=== PATIENT | male | born 2005 | race African-American/Black ===

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

== ENCOUNTER 2025-03-30 08:37 | Emergency (ER) | payer BC, SELFPAY ==
[2025-03-30 08:45] VITALS: BP 120/74; PULSE 68; RESP 18; TEMP 36.3; O2SAT 99
--- NOTE | 2025-03-30 09:01 | ED.GENADULT ---
HPI - General Adult General Chief complaint: Skin/Abscess/Foreign Body Stated complaint: INSECT BITE TO FACE Source: patient Mode of arrival: ambulatory Limitations: no limitations History of Present Illness HPI narrative: Pt presents for evaluation of right sided facial lesion. He states two weeks ago he was bit by an insect. He noted swelling and redness in the affected area. The redness has subsided. He denies any fever, chills, itching, pain or drainage from the area. Related Data Allergies Allergy/AdvReac Type Severity Reaction Status Date / Time No Known Allergies Allergy Verified 03/30/25 08:42 Review of Systems Review of Systems: CONSTITUTIONAL: Denies fever, chills, or sweats. EYES: Denies visual changes, redness, or discharge. ENT: Denies rhinorrhea, congestion, sore throat, or otalgia. CARDIOVASCULAR: Denies chest pain, palpitations, or edema. RESPIRATORY: Denies cough or dyspnea. GASTROINTESTINAL: Denies abdominal pain, nausea, vomiting, or diarrhea. GENITOURINARY: Denies dysuria or hematuria. SKIN: Reports skin lesion to the right side of the face MUSCULOSKELETAL: Denies back pain, joint pain, or myalgia. NEUROLOGIC: Denies headache, numbness, dizziness, or weakness. PSYCHIATRIC: Denies anxiety or depression. [facility] Past Medical History Medical History No pertinent past medical history Surgical History Surgical History No pertinent past surgical history Family History Family History Mother Family history non-contributory Social History Social History Smoking status: Never smoker Substance use: current Substance use type: marijuana Gender identity (if verbalized by the patient): Male Spiritual care concerns: No Exam Narrative: GENERAL: Well-appearing, well-nourished, and in no acute distress. HEAD: Normocephalic, atraumatic. EYES: PERRLA and EOMI. ENT: Nares clear, no rhinorrhea or epistaxis. Mucous membranes moist. Oropharynx without tonsillar hypertrophy exudate or other lesions. Bilateral TMs pearly [place]rid nonbulging NECK: Supple. No adenopathy or masses. No carotid bruits or JVD CHEST: Clear to auscultation. No respiratory distress. No wheezes rales or rhonchi HEART: Regular rate and rhythm. No murmur heard. Normal peripheral pulses. ABDOMEN: Soft, nontender, nondistended, normal active bowel sounds. EXTREMITIES: Normal range of motion. No edema. SKIN: There is a 2cm mass noted to the right mandibular angle without considerable redness or warmth NEURO: No focal deficits. Alert and oriented x3. PSYCH: Normal mood and affect. Course Course Emergency Course: This is a 20-year-old male who presented for evaluation of a mass to the right mandibular angle. This is consistent with a sebaceous cyst. It does not appear to be infected at the present time with he shows me pictures on his phone from yesterday with his associated redness. I will provide him with prescriptions for antibiotics in the event the he has recurrence of redness of develops warmth or increased swelling. Advised not to squeeze or manipulate the area. He should follow-up to have sebaceous cyst removal. He should go to the emergency department for worsening symptoms. Patient in agreement with plan of care. Level of Care: Express Care Visit Vital Signs Vital signs: Vital Signs Temperature 36.3 C L 03/30/25 08:45 Pulse Rate 68 03/30/25 08:45 Respiratory Rate 18 03/30/25 08:45 Blood Pressure 120/74 03/30/25 08:45 Pulse Oximetry 99 03/30/25 08:45 Temperature 36.3 C L 03/30/25 08:45 Pulse Rate 68 03/30/25 08:45 Respiratory Rate 18 03/30/25 08:45 Blood Pressure 120/74 03/30/25 08:45 Pulse Oximetry 99 03/30/25 08:45 Medical Decision Making Vital Signs Vital Signs: Vital Signs Temperature 36.3 C L 03/30/25 08:45 Pulse Rate 68 03/30/25 08:45 Respiratory Rate 18 03/30/25 08:45 Blood Pressure 120/74 03/30/25 08:45 Pulse Oximetry 99 03/30/25 08:45 Temperature 36.3 C L 03/30/25 08:45 Pulse Rate 68 03/30/25 08:45 Respiratory Rate 18 03/30/25 08:45 Blood Pressure 120/74 03/30/25 08:45 Pulse Oximetry 99 03/30/25 08:45 Discharge Plan Discharge Clinical Impression: Sebaceous cyst Patient Disposition: Home Condition: Stable Instructions: Antibiotic Form, Epidermal Inclusion Cysts (ED) Additional Instructions: PLEASE FOLLOW UP TO HAVE SEBACEOUS CYST REMOVED AT THE CURRENT TIME THIS DOES NOT APPEAR TO BE INFECTED IF YOU DEVELOP REDNESS, WARMTH OR WORSENING SWELLING IN THE AFFECTED AREA, YOU MAY START BOTH ANTIBIOTICS PLEASE DO NOT SQUEEZE THE LESION Patient Language: Occitan Prescriptions: New sulfamethoxazole-trimethoprim [Bactrim DS] 800-160 mg tablet 1 tablet PO Q12H Qty: 20 0RF cephalexin 500 mg capsule 500 mg PO Q6H Qty: 40 0RF Follow-up/Referrals: [facility] [Other] Jama Burden MD [Physician, Family Practice] Time of Disposition: 08:59
== END 2025-03-30 09:09 | disposition home or self-care (01) ==
PROVIDERS: Emergency Provider Nurse Practitioner
DX: L72.3 Sebaceous cyst (principal); F12.90 Cannabis use, unspecified, uncomplicated
CPT/HCPCS: 99213; G0463

== ENCOUNTER 2025-05-20 09:17 | Emergency (ER) | payer BC, SELFPAY ==
[2025-05-20 09:26] VITALS: BP 139/65; PULSE 99; RESP 16; TEMP 36.9; O2SAT 100
[2025-05-20 09:42] LABS: EDSTREPNEGPOS1 Negative (Negative)
--- NOTE | 2025-05-20 10:18 | ED_ITS ---
HPI - URI/Sore Throat General Chief Complaint: Upper Respiratory Infection Stated Complaint: SORE THROAT Time Seen by Provider: 05/20/25 10:00 Source: patient and RN notes reviewed Mode of arrival: ambulatory Limitations: no limitations History of Present Illness HPI Narrative: 20-year-old male patient presents to the [facility] complaining sore throat for 4 days. Patient denies any other upper respiratory symptoms, cough, chest pain, breathing problems, nausea, vomiting, diarrhea, abdominal pain, fevers, body aches, chills, any other symptoms. Patient has been taking Motrin to help with the pain. Patient denies any significant past medical history. Related Data Allergies Allergy/AdvReac Type Severity Reaction Status Date / Time No Known Allergies Allergy Verified 05/20/25 09:31 Review of Systems Review of Systems: CONSTITUTIONAL: Denies fever, chills, or sweats. EYES: Denies visual changes, redness, or discharge. ENT: Denies rhinorrhea, congestion, or otalgia. Positive for sore throat CARDIOVASCULAR: Denies chest pain, palpitations, or edema. RESPIRATORY: Denies cough or dyspnea. GASTROINTESTINAL: Denies abdominal pain, nausea, vomiting, or diarrhea. GENITOURINARY: Denies dysuria or hematuria. SKIN: Denies rash or itching. MUSCULOSKELETAL: Denies back pain, joint pain, or myalgia. NEUROLOGIC: Denies headache, numbness, or weakness. PSYCHIATRIC: Denies anxiety or depression. All other systems reviewed are negative, except as documented in HPI. [facility] Past Medical History Medical History No pertinent past medical history Surgical History Surgical History No pertinent past surgical history Family History Family History Mother Family history non-contributory Social History Social History Smoking status: Never smoker Substance use: current Substance use type: marijuana Gender identity (if verbalized by the patient): Male Spiritual care concerns: No Comments At the time of my signature, I reviewed and agree with the nursing past medical, surgical, social, and family history. There is no relevant family history pertinent to the patient complaint. Exam Narrative: GENERAL: This is a well-nourished, well-developed adult, in no apparent distress. They are non ill-appearing, nontoxic appearing. HEAD: normocephalic, atraumatic. EYES: Sclera clear/white. Conjunctiva normal. Vision is grossly intact. Extraocular movements intact EARS: External ears normal, auditory canals clear and without drainage, TMs normal without perforation. Hearing grossly intact. NOSE: External nose normal with no obvious nasal discharge, nasal turbinates without redness, no rhinorrhea. THROAT: Mucous membranes moist, posterior pharynx erythematous. Tonsils 2+ erythematous no exudate. Uvula midline. NECK: Neck supple, mild tender cervical lymphadenopathy, no masses or thyromegaly. CARDIOVASCULAR: Regular rate and rhythm without murmurs, gallops, or rubs. RESPIRATORY: Clear to auscultation. Breath sounds equal bilaterally. No wheezes, rales, or rhonchi. SKIN: warm, Dry, intact with no suspicious lesions or rash, good texture and turgor. NEURO: awake, alert, and oriented to person, place and time. There were no obvious focal neurologic abnormalities. EXTREMITIES: No joint tenderness, effusion, or edema noted. BACK: Nontender without deformity. Course Course Level of Care: Express Care Visit Vital Signs Vital signs: Vital Signs Temperature 98.5 F 05/20/25 09:26 Pulse Rate 99 05/20/25 09:26 Respiratory Rate 16 05/20/25 09:26 Blood Pressure 139/65 05/20/25 09:26 Pulse Oximetry 100 05/20/25 09:26 Oxygen Delivery Room Air 05/20/25 09:26 Temperature 98.5 F 05/20/25 09:26 Pulse Rate 99 05/20/25 09:26 Respiratory Rate 16 05/20/25 09:26 Blood Pressure 139/65 05/20/25 09:26 Pulse Oximetry 100 05/20/25 09:26 Oxygen Delivery Room Air 05/20/25 09:26 [facility] MDM Narrative Medical decision making narrative: Rapid strep negative. Throat culture is pending. Symptoms likely viral in etiology. Will give him a 1 time dose of dexamethasone for his symptoms. Discussed physical exam findings. Advised supportive measures and signs/symptoms to go to the ER. Pt is appropriate for outpt treatment and f/u. Differential Diagnosis Differential Diagnosis: Viral Pharyngitis, strep pharyngitis, viral illness, upper respiratory infection Lab Data MDM Lab Attestation statement: I personally reviewed the patient's lab results. Labs: Lab Results 05/20/25 Range/Units 09:40 POC Grp A Strep Screen Negative (Negative) Critical Care Time Critical Care Time Critical Care Time: No Discharge Plan Discharge Clinical Impression: Pharyngitis Qualifiers: Pharyngitis/tonsillitis etiology: unspecified etiology Qualified Code(s): J02.9 - Acute pharyngitis, unspecified Patient Disposition: Home Condition: Stable Instructions: Pharyngitis (ED) Additional Instructions: Take dexamethasone as directed. It is a 1 time dose. Your rapid strep swab was negative today at [facility]. You will be notified in a few days if the culture comes back positive for strep, and appropriate antibiotics will be called in for you at that time. Your symptoms are likely due to a viral illness, which is not treated with antibiotics. Viral symptoms can be present for up to 7-10 days. Take Tylenol or ibuprofen as needed for fever or pain. Follow instructions on the bottle. Rest and stay hydrated. Follow up with your PCP in 5-7 days if symptoms are not improving. Go to the ER immediately if you developed vomiting, chest pain, difficulty breathing or swallowing, or any serious concerns. Patient Language: [place] Prescriptions: New dexamethasone 2 mg tablet 10 mg PO ONCE 1 Days Qty: 5 0RF Follow-up/Referrals: PHYSICIAN,[facility] [Primary Care Provider, Internal Medicine] Time of Disposition: 10:12
== END 2025-05-20 10:16 | disposition home or self-care (01) ==
DX: J02.9 Acute pharyngitis, unspecified (principal)
CPT/HCPCS: 87081; 87880; 99213; G0463